=== PATIENT | female | born 1960 | race Caucasian/White ===

== ENCOUNTER 2016-05-06 14:18 | Emergency (ER) | payer BC, OTHER ==
[~2016-05-06] VITALS: Ht 149.9 cm; Wt 64.0 kg
[~2016-05-06 14:18] MED LIST: ALPR1 PO; IMIT25TA PO
[2016-05-06 14:19] VITALS: BP 145/75; PULSE 72; RESP 18; TEMP 98.2; O2SAT 98
[2016-05-06] MEDS ORDERED: XANA1TAB2 PO (17:15)
[2016-05-06] MEDS ORDERED: PAXI20TA PO (17:15)
[2016-05-06 17:17] LABS: AUTOMATED NEUTROPHIL # 4.4 TH/MM3 (1.8-7.7); BASOPHIL % 0.5 % (0.0-2.0); EOSINOPHIL # 0.2 TH/MM3 (0-0.4); EOSINOPHIL % 3.1 % (0.0-4.0); HEMATOCRIT 39.1 % (35.0-46.0); HEMO FLAGS DIFF FINAL; LYMPH % 34.6 % (9.0-44.0); LYMPHOCYTE # 2.7 TH/MM3 (1.0-4.8); MEAN CELL VOLUME 86.4 FL (80.0-100.0); MEAN CORPUSCULAR HEMOGLOBIN 29.5 PG (27.0-34.0); MEAN CORPUSCULAR HGB CONC 34.1 % (32.0-36.0); MONO % 5.3 % (0.0-8.0); NEUT % 56.5 % (16.0-70.0); PLATELET COUNT 233 TH/MM3 (150-450); RED BLOOD COUNT 4.53 MIL/MM3 (4.00-5.30); RED CELL DISTRIBUTION WIDTH 13.8 % (11.6-17.2); WHITE BLOOD COUNT 7.7 TH/MM3 (4.0-11.0)
[2016-05-06 17:32] LABS: AMPHETAMINE, URINE NEG (NEG); BARBITURATES, URINE NEG (NEG); COCAINE, URINE NEG (NEG)
[2016-05-06 17:34] LABS: ANION GAP 7 MEQ/L (5-15); AST (GOT) 17 U/L (15-37); BICARBONATE 28.9 MEQ/L (21.0-32.0); BLOOD UREA NITROGEN 20 MG/DL (7-18); CHLORIDE 103 MEQ/L (98-107); GLOMERULAR FILTRATION RATE 73 ML/MIN (>89); POTASSIUM 3.1 MEQ/L (3.5-5.1); SODIUM (NA) 139 MEQ/L (136-145)
[2016-05-06 17:37] LABS: ALKALINE PHOSPHATASE 61 U/L (45-117); ALT (GPT) 23 U/L (10-53); TOTAL BILIRUBIN ADULT 0.3 MG/DL (0.2-1.0)
--- NOTE | 2016-05-06 17:44 | PD ---
HPI Chief Complaint: Psychiatric Symptoms Time Seen by Provider: 17:25 Travel History International Travel<30 days: No Contact w/Intl Traveler<30days: No Traveled to known affect area: No History of Present Illness HPI Patient is a 55-year-old female who presents to emergency room for psychiatric evaluation. Patient reports that she has a long history of depression and anxiety, reports that she has taken Prozac in the past for depression. Patient reports that over the past few weeks, her anxiety and depression has escalated, reports that her recently told her that he did not want to be with her and essentially wanted a divorce. Patient reports that she felt blindsided by her . Patient reports that she feels depressed, reports that she has been working part-time at work and has hard time getting out of bed. Patient reports that she is not suicidal or homicidal, reports that she needs help at this time. PFSH Past Medical History Anxiety: Yes Depression: No Heart Rhythm Problems: No Cancer: No Cardiovascular Problems: No High Cholesterol: No Chest Pain: No Congestive Heart Failure: No Cerebrovascular Accident: No Diabetes: Yes (HYPERGLYCEMIA ) Diminished Hearing: No Endocrine: No Gastrointestinal Disorders: Yes (GERD; HOLT'S ESOPHAGUS ) GERD: Yes Genitourinary: No Headaches: Yes Hepatitis: No Hiatal Hernia: No Immune Disorder: No Musculoskeletal: No Neurologic: Yes (MIGRAINE HEADACHES) Psychiatric: Yes (PANC ATTACK; DEPRESSION (GRIEF INDUCED)) Reproductive: No Respiratory: No Migraines: Yes Seizures: No Thyroid Disease: No Ulcer: No Ovarian Cysts: Yes (with removal of cyst and part of ovary) Past Surgical History Abdominal Surgery: Yes (APPY ) Arteriovenous Shunt: No Body Medical Devices: BILATERAL BREAST IMPLANTS Cardiac Surgery: No Section: Yes (two) Ear Surgery: No Endocrine Surgery: No Eye Surgery: Yes (BILATERAL LASIK) Genitourinary Surgery: No Gynecologic Surgery: Yes (endometriosis, breast augmentation; PARTIAL OOPHORECTOMY 1981 & CYST REMOVA) Hysterectomy: Yes Insulin Pump: No Joint Replacement: No Oral Surgery: No Pacemaker: No Thoracic Surgery: No Other Surgery: Yes Social History Alcohol Use: Yes ("occasionally") Tobacco Use: No Substance Use: No Allergies-Medications (Allergen,Severity, Reaction): Coded Allergies: Benadryl (Verified Allergy, Severe, Twitching, 05/06/16) Codeine (Verified Allergy, Severe, Itching, 05/06/16) Sulfa (Verified Allergy, Intermediate, VOMITS, 02/18/15) Reported Meds & Prescriptions Reported Meds & Active Scripts Active Reported Paxil (Paroxetine HCl) 20 Mg Tab 20 Mg PO DAILY Xanax (Alprazolam) 1 Mg Tab 1 Mg PO Q12HR PRN Imitrex (Sumatriptan Succinate) 25 Mg Tab 25 Mg PO ONCE Xanax 1 Mg Tab (Alprazolam) 1 Mg Tab 1 Mg PO Q 12 HRS PRN Review of Systems General / Constitutional: No: Fever Eyes: No: Visual changes HENT: No: Headaches Cardiovascular: No: Chest Pain or Discomfort Respiratory: No: Shortness of Breath Gastrointestinal: No: Abdominal Pain Genitourinary: No: Dysuria Musculoskeletal: No: Pain Skin: No Rash Neurologic: No: Weakness Psychiatric: Positive: Anxiety, Depression, Mood Disorder Endocrine: No: Polydipsia Hematologic/Lymphatic: No: Easy Bruising Physical Exam Narrative GENERAL: No acute distress, nontoxic SKIN: Warm and dry. HEAD: Atraumatic. Normocephalic. EYES: Pupils equal and round. No scleral icterus. No injection or drainage. ENT: No nasal bleeding or discharge. Mucous membranes pink and moist. NECK: Trachea midline. No JVD. CARDIOVASCULAR: Regular rate and rhythm. No murmur appreciated. RESPIRATORY: No accessory muscle use. Clear to auscultation. Breath sounds equal bilaterally. GASTROINTESTINAL: Abdomen soft, non-tender, nondistended. Hepatic and splenic margins not palpable. MUSCULOSKELETAL: No obvious deformities. No clubbing. No cyanosis. No edema. NEUROLOGICAL: Awake and alert. No obvious cranial nerve deficits. Motor grossly within normal limits. Normal speech. PSYCHIATRIC: Anxious on exam, depressed, negative for SI or HI Data Data Last Documented VS Vital Signs Date Time Temp Pulse Resp B/P Pulse Ox O2 Delivery O2 Flow Rate FiO2 05/06/16 14:19 98.2 72 18 145/75 98 Room Air Orders Complete Blood Count With Diff (05/06/16 16:24) Comprehensive Metabolic Panel (05/06/16 16:24) Psych Screen (05/06/16 16:24) Drug Screen, Random Urine (05/06/16 16:24) Potassium Cl 40 Meq/30 Ml Liq (Kcl 40 Me (05/06/16 17:45) Labs Laboratory Tests Test 05/06/16 05/06/16 17:03 17:06 Urine Opiates Screen NEG Urine Barbiturates Screen NEG Urine Amphetamines Screen NEG Urine Benzodiazepines Screen POS Urine Cocaine Screen NEG Urine Cannabinoids Screen NEG White Blood Count 7.7 TH/MM3 Red Blood Count 4.53 MIL/MM3 Hemoglobin 13.3 GM/DL Hematocrit 39.1 % Mean Corpuscular Volume 86.4 FL Mean Corpuscular Hemoglobin 29.5 PG Mean Corpuscular Hemoglobin 34.1 % Concent Red Cell Distribution Width 13.8 % Platelet Count 233 TH/MM3 Mean Platelet Volume 6.9 FL Neutrophils (%) (Auto) 56.5 % Lymphocytes (%) (Auto) 34.6 % Monocytes (%) (Auto) 5.3 % Eosinophils (%) (Auto) 3.1 % Basophils (%) (Auto) 0.5 % Neutrophils # (Auto) 4.4 TH/MM3 Lymphocytes # (Auto) 2.7 TH/MM3 Monocytes # (Auto) 0.4 TH/MM3 Eosinophils # (Auto) 0.2 TH/MM3 Basophils # (Auto) 0.0 TH/MM3 CBC Comment DIFF FINAL Differential Comment Sodium Level 139 MEQ/L Potassium Level 3.1 MEQ/L Chloride Level 103 MEQ/L Carbon Dioxide Level 28.9 MEQ/L Anion Gap 7 MEQ/L Blood Urea Nitrogen 20 MG/DL Creatinine 0.82 MG/DL Estimat Glomerular Filtration 73 ML/MIN Rate Random Glucose 115 MG/DL Calcium Level 8.8 MG/DL Total Bilirubin 0.3 MG/DL Aspartate Amino Transf 17 U/L (AST/SGOT) Alanine Aminotransferase 23 U/L (ALT/SGPT) Alkaline Phosphatase 61 U/L Total Protein 7.6 GM/DL Albumin 4.2 GM/DL MDM Medical Decision Making Medical Screen Exam Complete: Yes Emergency Medical Condition: Yes Interpretation(s) Vital Signs Date Time Temp Pulse Resp B/P Pulse Ox O2 Delivery O2 Flow Rate FiO2 05/06/16 14:19 98.2 72 18 145/75 98 Room Air Differential Diagnosis Depression, suicidal idealizations, adjustment reaction Narrative Course Patient is a 55-year-old female who presents to emergency room for psychiatric evaluation. Patient with hx of depression - reports that her recently told her that he wanted to leave her. Patient denies si/hi - reports that she is here for depression. Reports that she cannot get herself out of bed some mornings because of her depression. Screening labs ordered. Will have patient see psychiatric screeners once medically cleared Diagnosis Primary Impression: Depression Qualified Code: F32.9 - Depression, unspecified depression type Additional Impressions: Anxiety Adjustment reaction Qualified Code: F43.22 - Adjustment disorder with anxious mood Hypokalemia Patient Instructions: General Instructions Additional Instructions: Please follow-up with your primary care doctor as soon as possible Return to the emergency room as needed or if symptoms return Madhavi Torres DO May 06, 2016 17:44 Madhavi Torres DO May 06, 2016 17:44
[2016-05-06] MEDS ORDERED: POTASSIUM CL 40 MEQ/30 ML LIQ UDC PO ONE (17:45)
[2016-05-06] MEDS ORDERED: PARO10TA2 PO (18:09)
[2016-05-06 20:00] VITALS: BP 158/93; PULSE 66; RESP 16; O2SAT 100
== END 2016-05-06 23:21 | disposition home or self-care (01) ==
LOC: NEPC 14:18
DX: F32.9 Major depressive disorder, single episode, unspecified (principal); F43.22 Adjustment disorder with anxiety; E87.6 Hypokalemia
CPT/HCPCS: 80053; 80307; 85025; 99284

== ENCOUNTER 2016-05-16 20:22 | Emergency (ER) | payer OTHER ==
[~2016-05-16] VITALS: Ht 152.4 cm; Wt 60.0 kg
[~2016-05-16 20:22] MED LIST changes: -ALPR1 PO; -IMIT25TA PO; +PARO10TA2 PO; +PAXI20TA PO; +XANA1TAB2 PO
[2016-05-16 20:39] VITALS: BP 120/79; PULSE 86; RESP 16; TEMP 98.6; O2SAT 98
--- NOTE | 2016-05-16 21:01 | PD ---
HPI Chief Complaint: Psychiatric Symptoms Time Seen by Provider: 20:32 Travel History International Travel<30 days: No Contact w/Intl Traveler<30days: No Traveled to known affect area: No History of Present Illness HPI The patient is a 55-year-old female who presents to the emergency department as a Roy act. The patient states she has a history of depression secondary to inability to grieve properly after her parents from leukemia 1999 and 2004. The patient states she has a history of depression, recently saw her physician, Dr. Colby Porras, who placed her on low to do an changed her from Xanax to Klonopin. The patient admits to drinking alcohol earlier today, apparently the patient's children called the police and the police placed the patient under a Roy act for suicidal comments. However, the patient denies any suicidal or homicidal ideation. She is requesting psychiatric help. She denies any hallucinations or delusions. PFSH Past Medical History Anxiety: Yes Depression: Yes Heart Rhythm Problems: No Cancer: No Cardiovascular Problems: Yes (HTN) High Cholesterol: No Chest Pain: No Congestive Heart Failure: No Cerebrovascular Accident: No Diabetes: Yes (HYPOGLYCEMIA ) Patient Takes Glucophage: No Diminished Hearing: No Endocrine: No Gastrointestinal Disorders: Yes (GERD; HOLT'S ESOPHAGUS ) GERD: Yes Genitourinary: No Headaches: Yes Hepatitis: No Hiatal Hernia: No Immune Disorder: No Musculoskeletal: No Neurologic: Yes (MIGRAINE HEADACHES) Psychiatric: Yes (PANC ATTACK; DEPRESSION (GRIEF INDUCED)) Reproductive: No Respiratory: No Migraines: Yes Seizures: No Thyroid Disease: No Ulcer: No ?: Not Ovarian Cysts: Yes (with removal of cyst and part of ovary) Past Surgical History Abdominal Surgery: Yes (APPY ) Appendectomy: Yes Arteriovenous Shunt: No Body Medical Devices: BILATERAL BREAST IMPLANTS Cardiac Surgery: No Section: Yes (2) Ear Surgery: No Endocrine Surgery: No Eye Surgery: Yes (BILATERAL LASIK) Genitourinary Surgery: No Gynecologic Surgery: Yes (endometriosis, breast augmentation; PARTIAL OOPHORECTOMY 1981 & CYST REMOVA) Hysterectomy: Yes Insulin Pump: No Joint Replacement: No Oral Surgery: No Pacemaker: No Thoracic Surgery: No Other Surgery: Yes Social History Alcohol Use: Yes (OCC- LAST DRINK NTHIS MORNING: VODKA) Tobacco Use: No Substance Use: No Allergies-Medications (Allergen,Severity, Reaction): Coded Allergies: Benadryl (Verified Allergy, Severe, Twitching, 05/16/16) Codeine (Verified Allergy, Severe, Itching, 05/16/16) Sulfa (Verified Allergy, Intermediate, VOMITS, 05/16/16) Reported Meds & Prescriptions Reported Meds & Active Scripts Active Reported [Blood Pressure Med] Latuda (Lurasidone) 20 Mg Tab Unknown Dose PO DAILY Paxil (Paroxetine HCl) 10 Mg Tab 10 Mg PO DAILY Klonopin (Clonazepam) 0.5 Mg Tab Unknown Dose PO BID Paroxetine (Paroxetine HCl) 10 Mg Tab 10 Mg PO DAILY Xanax (Alprazolam) 1 Mg Tab 1 Mg PO Q12HR PRN Review of Systems Except as stated in HPI: all other systems reviewed are Neg General / Constitutional: No: Fever Cardiovascular: No: Chest Pain or Discomfort Respiratory: No: Shortness of Breath Gastrointestinal: No: Nausea, Vomiting, Abdominal Pain Neurologic: No: Dizziness Psychiatric: Positive: Anxiety, Depression, Substance Abuse (occasional alcohol binge drinking), No: Suicidal Ideations, Disorder of Thought, Mood Disorder, Homicidal Ideation Physical Exam Narrative GENERAL: Awake, alert, tearful 55-year-old female who appears her stated age and is in no acute respiratory distress. SKIN: Warm and dry. HEAD: Atraumatic. Normocephalic. EYES: Mild bilateral injection secondary to crying. ENT: No nasal bleeding or discharge. Mucous membranes pink and moist. NECK: Trachea midline. No JVD. CARDIOVASCULAR: Regular rate and rhythm. No murmur appreciated. RESPIRATORY: No accessory muscle use. Clear to auscultation. Breath sounds equal bilaterally. GASTROINTESTINAL: Abdomen soft, non-tender, nondistended. MUSCULOSKELETAL: No obvious deformities. No clubbing. No cyanosis. No edema. NEUROLOGICAL: Awake and alert. No obvious cranial nerve deficits. Motor grossly within normal limits. Normal speech. PSYCHIATRIC: Tearful, insight and judgment appear normal. Data Data Last Documented VS Vital Signs Date Time Temp Pulse Resp B/P Pulse Ox O2 Delivery O2 Flow Rate FiO2 05/16/16 20:43 68 17 05/16/16 20:39 98.6 120/79 98 Orders Complete Blood Count With Diff (05/16/16 20:49) Comprehensive Metabolic Panel (05/16/16 20:49) Psych Screen (05/16/16 20:49) Drug Screen, Random Urine (05/16/16 20:49) Alcohol (Ethanol) (05/16/16 20:49) Labs Laboratory Tests Test 05/16/16 05/16/16 21:00 21:05 Urine Opiates Screen NEG Urine Barbiturates Screen NEG Urine Amphetamines Screen NEG Urine Benzodiazepines Screen POS Urine Cocaine Screen NEG Urine Cannabinoids Screen POS White Blood Count 7.9 TH/MM3 Red Blood Count 4.56 MIL/MM3 Hemoglobin 13.0 GM/DL Hematocrit 39.4 % Mean Corpuscular Volume 86.4 FL Mean Corpuscular Hemoglobin 28.6 PG Mean Corpuscular Hemoglobin 33.1 % Concent Red Cell Distribution Width 14.0 % Platelet Count 286 TH/MM3 Mean Platelet Volume 7.0 FL Neutrophils (%) (Auto) 45.9 % Lymphocytes (%) (Auto) 46.1 % Monocytes (%) (Auto) 6.2 % Eosinophils (%) (Auto) 0.9 % Basophils (%) (Auto) 0.9 % Neutrophils # (Auto) 3.6 TH/MM3 Lymphocytes # (Auto) 3.6 TH/MM3 Monocytes # (Auto) 0.5 TH/MM3 Eosinophils # (Auto) 0.1 TH/MM3 Basophils # (Auto) 0.1 TH/MM3 CBC Comment DIFF FINAL Differential Comment Sodium Level 146 MEQ/L Potassium Level 3.7 MEQ/L Chloride Level 108 MEQ/L Carbon Dioxide Level 30.4 MEQ/L Anion Gap 8 MEQ/L Blood Urea Nitrogen 19 MG/DL Creatinine 0.88 MG/DL Estimat Glomerular Filtration 67 ML/MIN Rate Random Glucose 90 MG/DL Calcium Level 8.0 MG/DL Total Bilirubin 0.3 MG/DL Aspartate Amino Transf 24 U/L (AST/SGOT) Alanine Aminotransferase 29 U/L (ALT/SGPT) Alkaline Phosphatase 58 U/L Total Protein 7.3 GM/DL Albumin 3.9 GM/DL Ethyl Alcohol Level 252 MG/DL MDM Medical Decision Making Medical Screen Exam Complete: Yes Emergency Medical Condition: Yes Medical Record Reviewed: Yes Interpretation(s) Laboratory Tests Test 05/16/16 05/16/16 21:00 21:05 Urine Opiates Screen NEG Urine Barbiturates Screen NEG Urine Amphetamines Screen NEG Urine Benzodiazepines Screen POS Urine Cocaine Screen NEG Urine Cannabinoids Screen POS White Blood Count 7.9 TH/MM3 Red Blood Count 4.56 MIL/MM3 Hemoglobin 13.0 GM/DL Hematocrit 39.4 % Mean Corpuscular Volume 86.4 FL Mean Corpuscular Hemoglobin 28.6 PG Mean Corpuscular Hemoglobin 33.1 % Concent Red Cell Distribution Width 14.0 % Platelet Count 286 TH/MM3 Mean Platelet Volume 7.0 FL Neutrophils (%) (Auto) 45.9 % Lymphocytes (%) (Auto) 46.1 % Monocytes (%) (Auto) 6.2 % Eosinophils (%) (Auto) 0.9 % Basophils (%) (Auto) 0.9 % Neutrophils # (Auto) 3.6 TH/MM3 Lymphocytes # (Auto) 3.6 TH/MM3 Monocytes # (Auto) 0.5 TH/MM3 Eosinophils # (Auto) 0.1 TH/MM3 Basophils # (Auto) 0.1 TH/MM3 CBC Comment DIFF FINAL Differential Comment Sodium Level 146 MEQ/L Potassium Level 3.7 MEQ/L Chloride Level 108 MEQ/L Carbon Dioxide Level 30.4 MEQ/L Anion Gap 8 MEQ/L Blood Urea Nitrogen 19 MG/DL Creatinine 0.88 MG/DL Estimat Glomerular Filtration 67 ML/MIN Rate Random Glucose 90 MG/DL Calcium Level 8.0 MG/DL Total Bilirubin 0.3 MG/DL Aspartate Amino Transf 24 U/L (AST/SGOT) Alanine Aminotransferase 29 U/L (ALT/SGPT) Alkaline Phosphatase 58 U/L Total Protein 7.3 GM/DL Albumin 3.9 GM/DL Ethyl Alcohol Level 252 MG/DL Differential Diagnosis Differential diagnosis includes substance induced mood disorder, depressive disorder NOS, adjustment reaction, mood disorder. Narrative Course Labs were drawn and sent. Psychiatric evaluation was ordered. Alcohol level is elevated 252. Tox screen is positive for benzodiazepines and cannabinoids. Patient is medically clear to be evaluated by psychiatry. Disposition as per psych. Diagnosis Primary Impression: Substance induced mood disorder Additional Impression: Adjustment reaction Qualified Code: F43.23 - Adjustment disorder with mixed anxiety and depressed mood Condition: Stable Erick Goins MD May 16, 2016 21:01
[2016-05-16] MEDS ORDERED: LURA20TA PO (21:11)
[2016-05-16] MEDS ORDERED: BLOOD PRESSURE MED (21:11)
[2016-05-16] MEDS ORDERED: CLON.5 PO (21:11)
[2016-05-16] MEDS ORDERED: PAXI10TA2 PO (21:11)
[2016-05-16 21:48] LABS: AMPHETAMINE, URINE NEG (NEG); BARBITURATES, URINE NEG (NEG); COCAINE, URINE NEG (NEG)
[2016-05-16 21:57] LABS: ANION GAP 8 MEQ/L (5-15)
[2016-05-16 22:00] LABS: ALKALINE PHOSPHATASE 58 U/L (45-117); ALT (GPT) 29 U/L (10-53); AST (GOT) 24 U/L (15-37); BICARBONATE 30.4 MEQ/L (21.0-32.0); BLOOD UREA NITROGEN 19 MG/DL (7-18); CHLORIDE 108 MEQ/L (98-107); GLOMERULAR FILTRATION RATE 67 ML/MIN (>89); POTASSIUM 3.7 MEQ/L (3.5-5.1); SODIUM (NA) 146 MEQ/L (136-145); TOTAL BILIRUBIN ADULT 0.3 MG/DL (0.2-1.0)
[2016-05-16 22:10] LABS: AUTOMATED NEUTROPHIL # 3.6 TH/MM3 (1.8-7.7); BASOPHIL # 0.1 TH/MM3 (0-0.2); BASOPHIL % 0.9 % (0.0-2.0); EOSINOPHIL # 0.1 TH/MM3 (0-0.4); EOSINOPHIL % 0.9 % (0.0-4.0); HEMATOCRIT 39.4 % (35.0-46.0); HEMO FLAGS DIFF FINAL; LYMPH % 46.1 % (9.0-44.0); LYMPHOCYTE # 3.6 TH/MM3 (1.0-4.8); MEAN CELL VOLUME 86.4 FL (80.0-100.0); MEAN CORPUSCULAR HEMOGLOBIN 28.6 PG (27.0-34.0); MEAN CORPUSCULAR HGB CONC 33.1 % (32.0-36.0); MONO % 6.2 % (0.0-8.0); NEUT % 45.9 % (16.0-70.0); PLATELET COUNT 286 TH/MM3 (150-450); RED BLOOD COUNT 4.56 MIL/MM3 (4.00-5.30); WHITE BLOOD COUNT 7.9 TH/MM3 (4.0-11.0)
[2016-05-16 23:34] VITALS: BP 122/70; PULSE 83; RESP 18; TEMP 97.6; O2SAT 99
[2016-05-17 03:54] VITALS: BP 110/62; PULSE 93; RESP 18; TEMP 97.3; O2SAT 98
[2016-05-17 03:59] VITALS: BP 110/62; PULSE 93; RESP 18; TEMP 97.6; O2SAT 98
[2016-05-17 06:18] VITALS: BP 106/55; PULSE 73; RESP 17; TEMP 97.1; O2SAT 99
--- NOTE | 2016-05-17 09:58 | PD ---
History of Present Illness Chief Complaint: Psychiatric Symptoms Time Seen by Provider: 09:30 Travel History International Travel<30 Days: No Contact w/Intl Traveler<30days: No Known affected area: No Legal Status Legal Status: Roy Act Roy Act Signed By: Marly Jose History of Present Illness: History of Present Illness HPI The patient is a 55-year-old female with history of depression and anxiety who presents to ED under a BA for reported statements that she wanted to , hasn't eaten in 3 days as well as being intoxicated. The call to the police was initiated by her adult children. Patient is seen this morning in [facility]. She at this point is clinically sober. There is no evidence of any withdrawal symptoms. Speech is clear and logical, normal rate and tone. She is tearful. Mood is depressed. There is no hallucinations, no delusions and no paranoia. She denies any suicidal or homicidal ideation, intent or plan. States " That was drama while drinking" referring to her call to her children. Patient reports that she has been feeling increasingly depressed over the past month after her of 26 years informed her that he wanted a divorce. 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 She reports that she has been depressed with increased sleep, decreased concentration, increase in anxiety as well as increased drinking. She presents to ED with BAL of 252 and admits to having been drinking since the morning. Patient is aware that she needs to begin to work on sobriety and has a friend that she will be attending AA. This friend she reports has 12 years of sobriety. In terms of depression she was recently started on new medication by Dr. Lynn and has a follow up appointment with him on June 05, 2016. [facility] Past Medical History Anxiety: Yes Depression: Yes Heart Rhythm Problems: No Cancer: No Cardiovascular Problems: Yes (HTN) High Cholesterol: No Chest Pain: No Congestive Heart Failure: No Cerebrovascular Accident: No Diabetes: Yes (HYPOGLYCEMIA ) Patient Takes Glucophage: No Diminished Hearing: No Endocrine: No Gastrointestinal Disorders: Yes (GERD; HOLT'S ESOPHAGUS ) GERD: Yes Genitourinary: No Headaches: Yes Hepatitis: No Hiatal Hernia: No Immune Disorder: No Musculoskeletal: No Neurologic: Yes (MIGRAINE HEADACHES) Psychiatric: Yes (PANC ATTACK; DEPRESSION (GRIEF INDUCED)) Reproductive: No Respiratory: No Migraines: Yes Seizures: No Thyroid Disease: No Ulcer: No ?: Not Ovarian Cysts: Yes (with removal of cyst and part of ovary) Past Surgical History Abdominal Surgery: Yes (APPY ) Appendectomy: Yes Arteriovenous Shunt: No Body Medical Devices: BILATERAL BREAST IMPLANTS Cardiac Surgery: No Section: Yes (2) Ear Surgery: No Endocrine Surgery: No Eye Surgery: Yes (BILATERAL LASIK) Genitourinary Surgery: No Gynecologic Surgery: Yes (endometriosis, breast augmentation; PARTIAL OOPHORECTOMY 1981 & CYST REMOVA) Hysterectomy: Yes Insulin Pump: No Joint Replacement: No Oral Surgery: No Pacemaker: No Thoracic Surgery: No Other Surgery: Yes Psychiatric History Psychiatric History Hx Psychiatric Treatment: PATIENT DIAGNOSED WITH DEPRESSION AND ANXIETY. Has started seeing Dr. Lynn for psychiatric follow up. History of Inpatient Treatment: No Social History x 26 years. Recently from her . Has 2 adult children. Hx Alcohol Use: Yes (OCC- LAST DRINK NTHIS MORNING: VODKA) Hx Tobacco Use: No Hx Substance Use: No Substance Use Type: Alcohol Hx of Substance Use Treatment: No Family Psychiatric History None reported. Allergies-Medications (Allergen,Severity, Reaction): Coded Allergies: Benadryl (Verified Allergy, Severe, Twitching, 05/16/16) Codeine (Verified Allergy, Severe, Itching, 05/16/16) Sulfa (Verified Allergy, Intermediate, VOMITS, 05/16/16) Reported Meds & Prescriptions Reported Meds & Active Scripts Active Reported [Blood Pressure Med] Latuda (Lurasidone) 20 Mg Tab Unknown Dose PO DAILY Paxil (Paroxetine HCl) 10 Mg Tab 10 Mg PO DAILY Klonopin (Clonazepam) 0.5 Mg Tab Unknown Dose PO BID Paroxetine (Paroxetine HCl) 10 Mg Tab 10 Mg PO DAILY Xanax (Alprazolam) 1 Mg Tab 1 Mg PO Q12HR PRN Review of Systems Except as stated in HPI: all other systems reviewed are Neg Psychiatric: COMPLAINS OF: Anxiety, Depression Exam Alert: Yes [place]: Person (ox4) Mood: Depressed Affect: Other (tearful) Speech: Clear, Logical Eye Contact: Normal Memory Intact: Comment (no impairment) Hallucinations: Other (negative) Delusions: No Suicidal: Ideation (deneis any) Homicidal: Ideation (Deneis any) Insight/Judgement Fair. Not impaired MDM Medical Decision Making Medical Record Reviewed: Yes Assessment/Plan 55 year old with hx of depression, anxiety as well as alcohol abuse who presents under a BA for suicidal ideation in context of alcohol abuse. At this time this patient is clinically sober and denies any suicidal or homicidal ideation, intent or plan. She is requesting discharge and does not meet criteria for BA. The BA will be lifted. Extensive discussion with her regarding negative effects of ETOH, recovery and AA. She will follow up with her outpatient psychiatrist. Orders Complete Blood Count With Diff (05/16/16 20:49) Comprehensive Metabolic Panel (05/16/16 20:49) Psych Screen (05/16/16 20:49) Drug Screen, Random Urine (05/16/16 20:49) Alcohol (Ethanol) (05/16/16 20:49) Diet Regular Basic (05/17/16 Breakfast) Diet Regular Basic (05/17/16 Lunch) Results Vital Signs Date Time Temp Pulse Resp B/P Pulse Ox O2 Delivery O2 Flow Rate FiO2 05/17/16 06:18 97.1 73 17 106/55 99 Room Air 05/17/16 03:59 97.6 93 18 110/62 98 Room Air 05/16/16 23:34 97.6 83 18 122/70 99 Room Air 05/16/16 20:43 68 17 05/16/16 20:39 98.6 86 16 120/79 98 Laboratory Tests Test 05/16/16 05/16/16 21:00 21:05 Urine Opiates Screen NEG Urine Barbiturates Screen NEG Urine Amphetamines Screen NEG Urine Benzodiazepines Screen POS Urine Cocaine Screen NEG Urine Cannabinoids Screen POS White Blood Count 7.9 Red Blood Count 4.56 Hemoglobin 13.0 Hematocrit 39.4 Mean Corpuscular Volume 86.4 Mean Corpuscular Hemoglobin 28.6 Mean Corpuscular Hemoglobin 33.1 Concent Red Cell Distribution Width 14.0 Platelet Count 286 Mean Platelet Volume 7.0 Neutrophils (%) (Auto) 45.9 Lymphocytes (%) (Auto) 46.1 Monocytes (%) (Auto) 6.2 Eosinophils (%) (Auto) 0.9 Basophils (%) (Auto) 0.9 Neutrophils # (Auto) 3.6 Lymphocytes # (Auto) 3.6 Monocytes # (Auto) 0.5 Eosinophils # (Auto) 0.1 Basophils # (Auto) 0.1 CBC Comment DIFF FINAL Differential Comment Sodium Level 146 Potassium Level 3.7 Chloride Level 108 Carbon Dioxide Level 30.4 Anion Gap 8 Blood Urea Nitrogen 19 Creatinine 0.88 Estimat Glomerular Filtration 67 Rate Random Glucose 90 Calcium Level 8.0 Total Bilirubin 0.3 Aspartate Amino Transf 24 (AST/SGOT) Alanine Aminotransferase 29 (ALT/SGPT) Alkaline Phosphatase 58 Total Protein 7.3 Albumin 3.9 Ethyl Alcohol Level 252 Diagnosis Primary Impression: Substance induced mood disorder Additional Impressions: Adjustment reaction Depression Psychiatrically Cleared: Yes Med/ Other Pt Specific Info: No Change to Meds Disposition: 01 DISCHARGE HOME Condition: Stable Problem Qualifiers Additional Impressions: Adjustment reaction Qualified Code: F43.23 - Adjustment disorder with mixed anxiety and depressed mood Depression Qualified Code: F32.1 - Moderate single current episode of major depressive disorder Janet Bess May 17, 2016 09:58
== END 2016-05-17 11:31 | disposition home or self-care (01) ==
LOC: NEPA 20:22 → NEPJ 05-17 11:31
DX: F19.94 Other psychoactive substance use, unspecified with psychoactive substance-induced mood disorder (principal); F43.23 Adjustment disorder with mixed anxiety and depressed mood; F32.1 Major depressive disorder, single episode, moderate; I10 Essential (primary) hypertension; Z86.59 Personal history of other mental and behavioral disorders; Z87.19 Personal history of other diseases of the digestive system; Z86.69 Personal history of other diseases of the nervous system and sense organs
CPT/HCPCS: 80053; 80307; 85025; 99283